=== PATIENT | male | born 2000 | race Caucasian/White ===

== ENCOUNTER 2022-01-05 12:29 | Emergency (ER) | payer MEDICAID ==
[~2022-01-05] VITALS: Ht 165.1 cm; Wt 71.7 kg
[~2022-01-05 12:29] MED LIST: ALBU0.0939
[2022-01-05 12:33] VITALS: BP 147/100
[2022-01-05] MEDS ORDERED: NACL 0.9% 1,000 ML IV ONE (12:55)
[2022-01-05] MEDS ORDERED: LORazepam 2 MG/ML VIAL IVP ONE (12:55)
--- NOTE | 2022-01-05 13:12 | NUR ---
PT REFUSED ATIVAN, REQUESTING TYLENOL. STEPHANIA SWIFT MADE AWARE
--- NOTE | 2022-01-05 13:20 | NUR ---
21/M PRESENTS TO ED WITH C/O HEADACHE AND ANXIETY SINCE THIS MORNING. PATIENT STATES "I CRACKED MY NECK AND I HAVE FELT WEIRD SINCE." PATIENT ADMITS TO "DRINKING OVER 12 BEERS AND DOING COKE" LAST NIGHT. PATIENT DENIES CP, SOB, N/V/D, VISION CHANGES.
[2022-01-05] MEDS ORDERED: ACETAMINOPHEN EXTRA STRENGTH 500 MG TAB PO ONE (13:30)
[2022-01-05] MEDS ORDERED: ACET-10509 PO (13:54)
[2022-01-05] MEDS ORDERED: ATA25 PO (13:54)
--- NOTE | 2022-01-05 14:05 | NUR ---
IV removed, catheter intact and site benign. Applied folded 4x4 gauze and tape to stop bleeding.
[2022-01-05 14:07] VITALS: BP 143/82
--- NOTE | 2022-01-05 14:07 | NUR ---
Patient discharged with v/s stable. Written and verbal after care instructions ABOUT STIMULANT USE DISORDER-COCAINE AND GENERALIZED ANXIETY DISORDER given and explained. Patient alert, oriented and verbalized understanding of instructions. Ambulatory with steady gait. All questions addressed prior to discharge. ID band removed. Patient advised to follow up with PMD. Rx of ATARAX HCL AND TYLENOL EXTRA STRENGTH given. Patient educated on indication of medication including possible reaction and side effects. Opportunity to ask questions provided and answered.
== END 2022-01-05 14:07 | disposition home or self-care (01) ==
LOC: MED 12:29
DX: F41.9 Anxiety disorder, unspecified (principal); F14.90 Cocaine use, unspecified, uncomplicated; M54.2 Cervicalgia; R20.0 Anesthesia of skin; R51.9 Headache, unspecified; J45.909 Unspecified asthma, uncomplicated; Z79.899 Other long term (current) drug therapy
CPT/HCPCS: 96360; 99283; J7030; J2060

== ENCOUNTER 2022-02-07 15:26 | Emergency (ER) | payer MEDICAID ==
[~2022-02-07] VITALS: Ht 165.1 cm; Wt 71.7 kg
[~2022-02-07 15:26] MED LIST changes: +ACET-10509 PO; +ATA25 PO
[2022-02-07 15:49] VITALS: BP 145/95
--- NOTE | 2022-02-07 17:40 | NUR ---
PT C/O SUBSTERNAL CHEST PAIN S/P METH USE LAST NIGHT. NSR ON MONITOR. NAD.
[2022-02-07 18:01] VITALS: BP 123/70
--- NOTE | 2022-02-07 18:06 | NUR ---
Patient discharged with v/s stable. Written and verbal after care instructions given and explained. Patient verbalized understanding. Ambulatory with steady gait. All questions addressed prior to discharge. Advised to follow up with PMD.
== END 2022-02-07 18:05 | disposition home or self-care (01) ==
LOC: MED 15:26
DX: R07.89 Other chest pain (principal); F15.10 Other stimulant abuse, uncomplicated; R42 Dizziness and giddiness; J45.909 Unspecified asthma, uncomplicated; Z79.899 Other long term (current) drug therapy
CPT/HCPCS: 71045; 93005; 99283

== ENCOUNTER 2022-03-22 03:47 | Emergency (ER) | payer MEDICAID ==
[~2022-03-22] VITALS: Ht 165.1 cm; Wt 72.6 kg
[2022-03-22 03:49] VITALS: BP 159/114
--- NOTE | 2022-03-22 03:56 | NUR ---
PT AMBULATED TO BED 6
--- NOTE | 2022-03-22 04:03 | NUR ---
PATIENT AMBULATED TO THE AND BACK TO BED 6
[2022-03-22] MEDS ORDERED: LORazepam 1 MG TAB PO ONE (04:20)
--- NOTE | 2022-03-22 04:27 | NUR ---
22/M BIB BROTHER C/C OF FEELING SHAKY. STATED "I'M SHAKY. I DRANK A LOT OF BEER TODAY AND YESTERDAY" IS RESTLESS AND APPEARS ANXIOUS. RR EVEN AND UNLABORED. PLACED IN BED. BED LOW AND LOCKED. SIDE RAIL UP FOR SAFETY. ALL NEEDS MET PMHX ASTHMA MEDS DENIES NKA
--- NOTE | 2022-03-22 05:30 | NUR ---
PATIETN RESTING IN BED. DOESNT APPEAR TO BE IN ANY DISTRESS OR ANXIOUS. ALL NEEDS MET
[2022-03-22 06:01] VITALS: BP 159/114
--- NOTE | 2022-03-22 06:01 | NUR ---
Patient discharged with v/s stable. Written and verbal after care instructions given and explained. Patient verbalized understanding. Advised to follow up with PMD.
--- NOTE | 2022-03-22 06:02 | NUR ---
Chart checked and completed. The patient's care was reviewed and supervised by Leah He RN.
== END 2022-03-22 06:01 | disposition home or self-care (01) ==
LOC: MED 03:47
DX: F41.9 Anxiety disorder, unspecified (principal); F10.239 Alcohol dependence with withdrawal, unspecified; Y90.9 Presence of alcohol in blood, level not specified; J45.909 Unspecified asthma, uncomplicated
CPT/HCPCS: 99283

== ENCOUNTER 2022-05-02 04:26 | Emergency (ER) | payer MEDICAID ==
[~2022-05-02] VITALS: Ht 165.1 cm; Wt 72.6 kg
[2022-05-02 04:29] VITALS: BP 172/116
--- NOTE | 2022-05-02 04:35 | NUR ---
Dr. Mock examining patient.
--- NOTE | 2022-05-02 04:35 | NUR ---
PT TAKEN TO BED 7
[2022-05-02] MEDS ORDERED: DICYCLOMINE HCL LIQUID 20 MG, ALUMINUM HYD/MAG/SIMETHICONE 30 ML, LIDOCAINE VISCOUS 2% ... PO ONE ×3 (04:40)
--- NOTE | 2022-05-02 04:47 | NUR ---
22 Y/O M BIB SELF FOR HEART PAIN SINCE MIDNIGHT. PT STATES HE WAS DRINKING AND THINK HE DRANK TOO MUCH. PT STATES HE FELT DIZZY AND COULD NOT FALL ASLEEP. DENIES F/V/D; SKIN IS PINK/WARM/DRY; AAOX4 WITH EVEN AND STEADY GAIT; LUNGS CLEAR BL; HR EVEN AND REGULAR; PATIENT STATES PAIN OF 2/10 AT THIS TIME IN MIDDLE CHEST; VSS; PMH: BROKEN WRIST WITH CAST STILL ON
--- NOTE | 2022-05-02 04:53 | NUR ---
X-Ray at bedside.
[2022-05-02] MEDS ORDERED: ALUMINUM HYD/MAG/SIMETHICONE 30 ML UDC ONE (04:58)
[2022-05-02] MEDS ORDERED: DICYCLOMINE HCL LIQUID 10 MG/5 ML UDC ONE (04:58)
[2022-05-02 05:38] LABS: BASOPHILS % (AUTO) 0.4 % (0.0-2.0); EOSINOPHILS # (AUTO) 0.1 K/uL (0-0.4); EOSINOPHILS % (AUTO) 1.2 % (0.0-4.0); HEMATOCRIT 38.8 % (36-52); HEMOGLOBIN 12.7 g/dL (12.0-18.0); LYMPHOCYTES # (AUTO) 1.4 K/uL (2.0-11.5); LYMPHOCYTES % (AUTO) 17.7 % (20.5-51.1); MEAN CORPUSCULAR HEMOGLOBIN 27 pg (27-31); MEAN CORPUSCULAR HGB CONC 33 g/dL (33-37); MEAN CORPUSCULAR VOLUME 83.6 fL (80-94); MONOCYTES # (AUTO) 0.7 K/uL (0.8-1.0); MONOCYTES % (AUTO) 9.7 % (1.7-9.3); NEUTROPHILS # (AUTO) 5.4 K/uL (1.8-7.7); PLATELET COUNT (AUTO) 276 K/uL (140-450); RED BLOOD CELL COUNT(AUTO) 4.64 MIL/uL (4.20-6.10); RED CELL DISTRIBUTION WIDTH 13.4 % (11.6-13.7); WHITE BLOOD COUNT (AUTO) 7.6 K/uL (4.8-10.8)
[2022-05-02 06:18] LABS: ALBUMIN 3.6 g/dL (3.4-5.0); ANION GAP 15.9 (8-16); ASPARTATE AMINOTRANSFERASE 48 U/L (15-37); CARBON DIOXIDE 22.9 mmol/L (21-32); CHLORIDE 106 mmol/L (98-107); CREATININE 0.9 mg/dL (0.6-1.3); GFR ARICAN-AMERICAN 133 mL/min (>90); GLUCOSE 124 mg/dL (74-106); POTASSIUM 3.8 mmol/L (3.5-5.1); SODIUM SERUM 141 mmol/L (136-145); TOTAL BILIRUBIN 0.2 mg/dL (0.0-1.0); UREA NITROGEN, BLOOD 8 mg/dL (7-18)
[2022-05-02 07:11] VITALS: BP 172/116
--- NOTE | 2022-05-02 07:12 | NUR ---
Chart checked and completed. The patient's care was reviewed and supervised by Leah He RN.
== END 2022-05-02 07:11 | disposition home or self-care (01) ==
LOC: MED 04:26
DX: K29.20 Alcoholic gastritis without bleeding (principal); R07.89 Other chest pain; J45.909 Unspecified asthma, uncomplicated; Z98.890 Other specified postprocedural states
CPT/HCPCS: 36415; 71045; 80053; 84484; 85025; 93005; 99284; Q0092